=== PATIENT | female | born 2000 | race Caucasian/White ===

== ENCOUNTER 2020-12-29 16:36 | Inpatient (IN) | payer MEDICAID, OTHER, SELFPAY ==
[2020-12-29 17:13] VITALS: BMI 26.6
[2020-12-29] MEDS ORDERED: hydrALAZINE 20 MG/ML VIAL SLOW IVP PRN ×2 (17:47→21:38)
[2020-12-29] MEDS ORDERED: Carboprost 250 MCG/ML AMP IM PRN (21:38)
[2020-12-29] MEDS ORDERED: Zolpidem Tartrate 5 MG TAB PO PRN (21:38)
[2020-12-29] MEDS ORDERED: Misoprostol 200 MCG TAB PR PRN (21:38)
[2020-12-29] MEDS ORDERED: Lidocaine 1% (PF) 30 ML VIAL SC PRN (21:38)
[2020-12-29] MEDS ORDERED: HYDROcodone/Acetaminophen 5/325 mg Tablet PO PRN ×2 (21:38)
[2020-12-29] MEDS ORDERED: Meperidine HCl/PF 25 MG/ML VIAL IM/IV PRN (21:38)
[2020-12-29] MEDS ORDERED: Ibuprofen 800 MG TAB PO PRN (21:38)
[2020-12-29] MEDS ORDERED: Ondansetron PF 4 MG/2 ML Vial IVP PRN (21:38)
[2020-12-29] MEDS ORDERED: Butorphanol Tartrate 1 MG/ML VIAL SLOW IVP PRN (21:38)
[2020-12-29] MEDS ORDERED: Promethazine HCl 25 MG/ML VIAL IM PRN (21:38)
[2020-12-29] MEDS ORDERED: Lactated Ringer's 1,000 ML IV SCH (22:45)
[2020-12-29] MEDS ORDERED: NS w/ Oxytocin 30 units 500 ML IV SCH ×2 (22:45)
[2020-12-30 01:16] LABS: Hemoglobin 10.6 g/dL (12.0-15.5); Mean Corpuscular HGB CONC 34.4 g/dL (32.0-36.0); Mean Corpuscular Hemoglobin 32.2 pg (27.0-33.0); Mean Corpuscular Volume 93.6 fl (81.6-98.3); Mean Platelet Volume 11.8 fl (7.4-10.4); Platelet Count 136 10x3/uL (150-450); RBC Distribution Width 13.8 % (11.5-14.5); Red Blood Cell (RBC) Count 3.29 10x6/uL (3.90-5.03); White Blood Cell (WBC) Count 8.8 10x3/uL (3.5-10.5)
[2020-12-30 01:47] LABS: Hep B Surf Ag Non-Reactive S/CO (NonReactive)
[2020-12-30 01:49] LABS: Syphilis Antibody Nonreactive (Nonreactive); Syphilis Antibody Index 0.04 S/CO (<1.00 Non-Reactive)
[2020-12-30 02:26] LABS: HBSAg Index 0.24 S/CO (0-0.99)
[2020-12-30 04:03] LABS: SARS-CoV-2 NAA Rapid Test Not Detected (NotDetected)
[2020-12-30] MEDS ORDERED: Fentanyl 100 MCG/2 ML VIAL ONE (07:25)
[2020-12-30] MEDS ORDERED: ePHEDrine Sulfate 50 MG/10 ML VIAL ONE ×2 (07:25→08:16)
[2020-12-30] MEDS ORDERED: Morphine PF 10 MG/10 ML VIAL ONE (07:25)
[2020-12-30] MEDS ORDERED: Famotidine/PF 20 mg/2ml Vial ONE (07:37)
[2020-12-30] MEDS ORDERED: Famotidine/PF 20 mg/2ml Vial SLOW IVP PRN (07:52)
[2020-12-30] MEDS ORDERED: Bicitra 30 ML UDCUP PO PRN (07:52)
[2020-12-30] MEDS ORDERED: PHENYLEPHRINE-NS 100 MCG/ML 10 ML SYRINGE ONE (07:56)
[2020-12-30] MEDS ORDERED: Oxytocin 10 UNITS/ML VIAL ONE ×2 (07:56→08:50)
[2020-12-30] MEDS ORDERED: Phenylephrine 40 MG/NS 250 ML 250 ML ONE (07:56)
[2020-12-30] MEDS ORDERED: CEFAZOLIN 2 GM in Premix Bag 1 BAG IVPB SCH (08:00)
[2020-12-30] MEDS ORDERED: Methylergonovine 0.2 MG/ML VIAL ONE (08:55)
[2020-12-30] MEDS ORDERED: Ondansetron PF 4 MG/2 ML Vial ONE (08:56)
[2020-12-30] MEDS ORDERED: Ketorolac Tromethamine 30 MG/ML VIAL ONE (08:57)
[2020-12-30] MEDS ORDERED: Naloxone HCl 0.4 mg/ml Vial IVP PRN ×2 (09:23)
[2020-12-30] MEDS ORDERED: Meperidine HCl/PF 25 MG/ML VIAL SLOW IVP PRN (09:23)
[2020-12-30] MEDS ORDERED: Hydrocerin (Eucerin) Cream 120 gm Jar TOP PRN (09:23)
[2020-12-30] MEDS ORDERED: HYDROmorphone 2 MG/ML VIAL SLOW IVP PRN (09:23)
[2020-12-30] MEDS ORDERED: Fentanyl 100 MCG/2 ML VIAL SLOW IVP PRN (09:23)
[2020-12-30] MEDS ORDERED: Promethazine HCl 25 MG SUPP PR PRN (09:23)
[2020-12-30] MEDS ORDERED: Ondansetron HCl/PF 4 MG/2 ML Vial IVP PRN (09:23)
[2020-12-30] MEDS ORDERED: Ondansetron PF 4 MG/2 ML Vial IVP PRN ×2 (09:23→11:57)
[2020-12-30] MEDS ORDERED: Naloxone HCl 0.4 mg/ml Vial IV PRN (09:23)
[2020-12-30] MEDS ORDERED: diphenhydrAMINE 50 MG/ML VIAL IVP PRN (09:23)
[2020-12-30] MEDS ORDERED: Promethazine HCl 25 MG/ML VIAL IM PRN (09:23)
[2020-12-30] MEDS ORDERED: Communication Order-Pharmacy FS SCH (09:30)
[2020-12-30] MEDS: Lactated Ringer's 1,000 ML IV SCH (11:52)
[2020-12-30] MEDS ORDERED: hydrALAZINE 20 MG/ML VIAL SLOW IVP PRN (11:57)
[2020-12-30] MEDS ORDERED: NS w/ Oxytocin 30 units 500 ML IV SCH (11:57)
[2020-12-30] MEDS ORDERED: Acetaminophen 325 MG TAB PO PRN (11:57)
[2020-12-30] MEDS ORDERED: diphenhydrAMINE 25 MG CAP PO PRN (11:57)
[2020-12-30] MEDS ORDERED: Lanolin Ointment 7 GM TUBE TOP PRN (11:57)
[2020-12-30] MEDS ORDERED: Misoprostol 200 MCG TAB PR PRN (11:57)
[2020-12-30] MEDS ORDERED: Boostrix 0.5 ML (Tdap) VIAL IM ONE (11:57)
[2020-12-30] MEDS ORDERED: Ibuprofen 800 MG TAB PO SCH (14:00)
[2020-12-30] MEDS: Ketorolac Tromethamine 30 MG/ML VIAL IVP SCH (17:10)
[2020-12-30] MEDS: Simethicone Chewable 80 MG TAB PO PRN (17:10)
[2020-12-30] MEDS: Ferrous Sulfate 325 MG TAB PO SCH (19:35)
[2020-12-30] MEDS: Docusate Calcium (SURFAK) 240 MG CAP PO SCH (22:28)
[2020-12-30] MEDS: HYDROcodone/Acetaminophen 5/325 mg Tablet PO PRN (22:28)
[2020-12-31] MEDS: Ketorolac Tromethamine 30 MG/ML VIAL IVP SCH ×2 (00:13→05:57)
[2020-12-31] MEDS: Simethicone Chewable 80 MG TAB PO PRN ×4 (05:59→21:35)
[2020-12-31 06:12] LABS: Hemoglobin 8.2 g/dL (12.0-15.5); Mean Corpuscular HGB CONC 33.3 g/dL (32.0-36.0); Mean Corpuscular Hemoglobin 31.7 pg (27.0-33.0); Mean Platelet Volume 11.6 fl (7.4-10.4); Platelet Count 111 10x3/uL (150-450); Red Blood Cell (RBC) Count 2.59 10x6/uL (3.90-5.03); White Blood Cell (WBC) Count 7.5 10x3/uL (3.5-10.5)
[2020-12-31] MEDS: Prenatal Vitamin 1 TAB PO SCH (08:31)
[2020-12-31] MEDS: Docusate Calcium (SURFAK) 240 MG CAP PO SCH ×2 (08:31→21:35)
[2020-12-31] MEDS: Ferrous Sulfate 325 MG TAB PO SCH ×2 (08:31→21:35)
[2020-12-31] MEDS: HYDROcodone/Acetaminophen 5/325 mg Tablet PO PRN (10:25)
[2020-12-31] MEDS: Ibuprofen 800 MG TAB PO SCH ×2 (14:49→21:35)
[2021-01-01] MEDS: Ibuprofen 800 MG TAB PO SCH ×3 (04:49→23:08)
[2021-01-01] MEDS: HYDROcodone/Acetaminophen 5/325 mg Tablet PO PRN ×4 (04:49→23:09)
[2021-01-01] MEDS: Simethicone Chewable 80 MG TAB PO PRN ×2 (04:50→08:38)
[2021-01-01] MEDS: Ferrous Sulfate 325 MG TAB PO SCH ×2 (08:37→23:08)
[2021-01-01] MEDS: Prenatal Vitamin 1 TAB PO SCH (08:37)
[2021-01-01] MEDS: Docusate Calcium (SURFAK) 240 MG CAP PO SCH ×2 (08:37→23:08)
[2021-01-01] MEDS ORDERED: Milk Of Magnesia 30 ML UDCUP PO PRN (12:19)
[2021-01-02] MEDS: Ibuprofen 800 MG TAB PO SCH ×2 (05:06→16:44)
[2021-01-02 07:49] VITALS: BP 114/58; TEMP 98.4
[2021-01-02] MEDS: Ferrous Sulfate 325 MG TAB PO SCH (08:30)
[2021-01-02] MEDS: Docusate Calcium (SURFAK) 240 MG CAP PO SCH (08:30)
[2021-01-02] MEDS: Prenatal Vitamin 1 TAB PO SCH (08:30)
[2021-01-02] MEDS: Simethicone Chewable 80 MG TAB PO PRN (11:23)
[2021-01-02] MEDS: HYDROcodone/Acetaminophen 5/325 mg Tablet PO PRN (11:24)
== END 2021-01-02 17:00 | disposition home or self-care (01) | DRG 787 ==
LOC: CSHLD/OP 16:36 → CSHLD 20:08 → CSHPP 12-30 11:45
PROVIDERS: ADMIT Obstetrics & Gynecology; ATTEND Obstetrics & Gynecology
PROC: 3E0234Z Introduction of Serum, Toxoid and Vaccine into Muscle, Percutaneous Approach (ICD-10-PCS; 2020-12-29)
PROC: 10D00Z1 Extraction of Products of Conception, Low, Open Approach (ICD-10-PCS; principal; 2020-12-30)
DX: O32.8XX0 Maternal care for other malpresentation of fetus, not applicable or unspecified (principal); O72.1 Other immediate postpartum hemorrhage; Z3A.38 38 weeks gestation of pregnancy; Z37.0 Single live birth; Z20.822 Contact with and (suspected) exposure to COVID-19; O26.893 Other specified pregnancy related conditions, third trimester; Z67.41 Type O blood, Rh negative; Z79.899 Other long term (current) drug therapy; Z79.82 Long term (current) use of aspirin; O99.02 Anemia complicating childbirth; D64.9 Anemia, unspecified
CPT/HCPCS: 36415; 51702; 85027; 85461; 86780; 86850; 86870; 86900; 86901; 87340; 90384; 96372; 99285; J1200; J1885; J2210; J2274; J2405; J2590; J3010; U0002

== ENCOUNTER 2021-01-22 17:27 | Emergency (ER) | payer OTHER | END 2021-01-22 19:00 | disposition home or self-care (01) | LOC: CSHERS 17:27 | DX: I80.8 Phlebitis and thrombophlebitis of other sites (principal) | CPT/HCPCS: 99283 ==